=== PATIENT | female | born 1970 | race Hispanic/Latino ===

== ENCOUNTER → 2017-11-04 | Emergency (ER) | payer OTHER ==
[~2017-11-04] MED LIST: Bacitracin Zinc 1 Packet ONE; Ibuprofen 800 MG TAB ONE
--- NOTE | 2017-11-04 14:56 | RAD ---
3 VIEWS LEFT FOOT: Date: 11/04/17 HISTORY: Patient dropped a piece of metal on foot with bruising. FINDINGS: AP, lateral, and oblique views of left foot obtained. There is extensive soft tissue swelling along the dorsum of the left foot. There is a transverse frac ture through the proximal to mid portion proximal phalanx fifth digit left foot. There is also a frac ture involving the medial aspect proximal most portion proximal phalanx first digit left foot. IMPRESSION: 1. First and fifth phalangeal fractures involving the proximal phalanx. 2. Soft tissue swelling along the dorsal aspect of the left foot. POS: TOM
== END ==
LOC: ERS 12:41
DX: S92.412A Displaced fracture of proximal phalanx of left great toe, initial encounter for closed fracture (principal); S92.512A Displaced fracture of proximal phalanx of left lesser toe(s), initial encounter for closed fracture; D50.9 Iron deficiency anemia, unspecified; Y92.69 Other specified industrial and construction area as the place of occurrence of the external cause; W20.8XXA Other cause of strike by thrown, projected or falling object, initial encounter; Y99.0 Civilian activity done for income or pay
CPT/HCPCS: 29515

== ENCOUNTER 2018-12-26 09:09 | Outpatient (CLI) | payer OTHER ==
--- NOTE | 2018-12-26 10:16 | MMO ---
BILATERAL SCREENING MAMMOGRAM: HISTORY: A 48-year-old female. Routine screening mammography. Family history of cancer in their 40s. COMPARISON: None. The current study will be treated as a baseline mammogram. TECHNIQUE: CC and MLO views of both breasts are submitted for interpretation. This patient's mammogram is revie wed with the assistance of computer aided detection. FINDINGS: The breasts are composed of scattered fibroglandular tissue. Bilaterally, no suspicious dominant mas s, architectural distortion, or suspicious calcification. IMPRESSION: BI-RADS Category 1-Negative examination. RECOMMENDATIONS: Annual mammogram. POS: [id number]
== END 2018-12-26 09:10 | disposition home or self-care (01) ==
LOC: SCSMAMMO 09:09
PROVIDERS: ATTEND Family Medicine
DX: Z12.31 Encounter for screening mammogram for malignant neoplasm of breast (principal)
CPT/HCPCS: 77067